=== PATIENT | female | born 1985 | race Caucasian/White ===

== ENCOUNTER 2021-12-13 04:38 | Emergency (ER) | payer OTHER ==
[2021-12-13] MEDS ORDERED: NAPROSYN500 MG PO (06:07)
== END 2021-12-13 09:20 | disposition home or self-care (01) ==
LOC: ED 04:38
DX: S93.401A Sprain of unspecified ligament of right ankle, initial encounter (principal); M79.671 Pain in right foot; Z88.0 Allergy status to penicillin; X50.1XXA Overexertion from prolonged static or awkward postures, initial encounter; Y93.89 Activity, other specified; Y92.89 Other specified places as the place of occurrence of the external cause; Y99.8 Other external cause status